=== PATIENT | male | born 1990 | race Caucasian/White ===

== ENCOUNTER 2021-07-13 03:35 | Emergency (ER) | payer MEDICAID, OTHER, SELFPAY ==
[2021-07-13 03:38] VITALS: RESP 16; BMI 26.4
[2021-07-13 03:43] VITALS: BP 126/75; PULSE 84; RESP 16; O2SAT 98
--- NOTE | 2021-07-13 04:42 | PC.NURSE ---
PATIENT CLALING HIS SISTER FOR A SOBER RIDE HOME, STATING HE WAS GOING TO WALK OUT BY HIMSELF. INSTEAD PATIENT WAS AGREEABLE TO HAVE SISTER PICK HIM UP. DISCUSSING PATIENT WITH MD PROVIDER, WHO HAS NOT COME TO SEE THE PATIENT. PATIENT REFUSING TO STAY. FAMILY MEMBER ARRIVING AND WANTING TO TAKE PATIENT HOME. PROVIDER AGAIN MADE AWARE.
--- NOTE | 2021-07-13 04:47 | ED.ALCOHOL ---
HPI - Alcohol General Chief Complaint: ETOH/Substance Use Stated Complaint: ETOH Time Seen by Provider: 07/13/21 04:47 Source: patient Mode of arrival: EMS History of Present Illness HPI narrative: 30-year-old male who is brought in by EMS after he was found sleeping outside by the please. As per EMS the patient was given the choice to either go to the hospital or that they would [facility]. He chose to come to the emergency room and has at this time called his family member and says that he wishes to be discharged. He denies any acute complaints at this time. Related Data Allergies Allergy/AdvReac Type Severity Reaction Status Date / Time No Known Allergies Allergy Verified 07/13/21 03:43 Review of Systems Review of Systems: Pertinent positives and negatives as stated in HPI 10 point review of systems is otherwise negative. PMFSH Past Medical History Source: nursing notes reviewed Social History Social History Advance Directives: No Physical Exam Vital Signs: Vital Signs: Last Vital Signs Pulse 84 07/13/21 03:43 Resp 16 07/13/21 03:43 BP 126/75 07/13/21 03:43 Pulse Ox 98 07/13/21 03:43 Body Mass Index 26.4 VITAL SIGNS: Reviewed. GENERAL: Intoxicated, Well developed, well nourished, in no acute distress. HEAD: Normocephalic/atraumatic EYES: PERRLA, EOMI OROPHARYNX: no oral lesions noted, posterior pharynx clear LUNGS: Normal breath sounds. No adventitious sounds or accessory muscle use. SpO2<98> CARDIOVASCULAR: Regular rate and rhythm without noted murmurs. ABDOMEN: Soft, non-tender, non-distended with bowel sounds. NEUROLOGIC: Alert and oriented x 4. Strength and sensation to light touch were grossly intact x 4. Course Course Course Narrative: This is a 30-year-old male with history and clinical presentation consistent with alcohol intoxication, able to ambulate without difficulty and has a safe ride home from family member. He was otherwise discharged in stable condition. Discharge Plan Discharge Clinical Impression: Alcoholic intoxication Patient Disposition: Home, Self-Care Instructions: Alcohol Intoxication (ED) Additional Instructions: Return to the ER for acute worsening of symptoms. Interventions: ED Discharge Assessment Last Done: 07/13/21 04:51 Discharge Date/Time: 07/13/21 04:52 Print Language: [place]
== END 2021-07-13 04:52 | disposition home or self-care (01) ==
PROVIDERS: Emergency Provider Student in an Organized Health Care Education/Training Program
DX: F10.129 Alcohol abuse with intoxication, unspecified (principal); Y90.9 Presence of alcohol in blood, level not specified
CPT/HCPCS: 99283